=== PATIENT | male | born 1985 | race Caucasian/White ===

== ENCOUNTER 2019-03-29 12:53 | Emergency (ER) | payer OTHER ==
[2019-03-29] MEDS ORDERED: ZOLOFT25 MG PO (13:47)
[2019-03-29] MEDS ORDERED: PENICILLN VK500 MG PO (14:11)
[2019-03-29 14:39] VITALS: BP 121/77
== END 2019-03-29 14:39 | DRG 159 ==
LOC: ED 12:53
PROC: 0CQ1XZZ Repair Lower Lip, External Approach (ICD-10-PCS; principal; 2019-03-29)
DX: S01.511A Laceration without foreign body of lip, initial encounter (principal); X58.XXXA Exposure to other specified factors, initial encounter; Y93.9 Activity, unspecified; Y92.149 Unspecified place in prison as the place of occurrence of the external cause